=== PATIENT | female | born 1995 ===

== ENCOUNTER 2017-04-12 10:43 | Emergency (ER) | payer OTHER ==
[2017-04-12 10:51] VITALS: BP 124/62; PULSE 86; RESP 20; TEMP 98.4; O2SAT 100
--- NOTE | 2017-04-12 12:04 | ED PDOC ---
HPI: Headache Time Seen by Provider: 04/12/17 11:05 Chief Complaint (Nursing): Headache History Per: Patient History/Exam Limitations: no limitations Onset/Duration Of Symptoms: Gradual (1 week ago became worse today) Current Symptoms Are (Timing): Still Present Severity: Mild Front/Back Head: 1 - occipital headache Preceeding Symptoms: None Associated Symptoms: denies: Photophobia, Blurred Vision, Nausea, Vomiting, Extremity Weakness Additional History Per: Patient Additional Complaint(s): no trauma no bv/dv/n/t/w. left inguinal pain. Past Medical History Reviewed: Historical Data, Nursing Documentation, Vital Signs Vital Signs: Last Vital Signs Temp 98.4 F 04/12/17 10:50 Pulse 86 04/12/17 10:50 Resp 20 04/12/17 10:50 BP 124/62 04/12/17 10:50 Pulse Ox 100 04/12/17 10:50 - Medical History PMH: No Chronic Diseases - Family History Family History: States: Unknown Family Hx - Living Arrangements Living Arrangements: With Family - Social History Current smoker - smoking cessation education provided: No - Home Medications Home Medications: Ambulatory Orders Medication Instructions Recorded Nitrofurantoin Macrocrystals 100 mg PO BID #14 cap 01/03/16 [Macrobid] Naproxen [Naprosyn] 500 mg PO BID PRN #30 tab 04/03/16 Ibuprofen [Motrin] 600 mg PO TID PRN #30 tab 10/29/16 metroNIDAZOLE [Flagyl] 500 mg PO BID #13 tab 10/29/16 Naproxen 500 mg PO BID PRN #30 tab 04/12/17 - Allergies Allergies/Adverse Reactions: Allergies Allergy/AdvReac Type Severity Reaction Status Date / Time No Known Allergies Allergy Verified 04/12/17 11:08 Review of Systems ROS Statement: Except As Marked, All Systems Reviewed And Found Negative Constitutional: Negative for: Fever, Chills Cardiovascular: Negative for: Chest Pain, Palpitations Respiratory: Negative for: Cough, Shortness of Breath Gastrointestinal: Negative for: Nausea, Vomiting, Abdominal Pain Genitourinary Female: Positive for: Pelvic Pain, Other (flank pain). Negative for: Dysuria, Vaginal Discharge, Vaginal Bleeding Musculoskeletal: Negative for: Neck Pain, Shoulder Pain, Arm Pain, Back Pain, Hand Pain, Leg Pain Neurological: Negative for: Weakness, Numbness Physical Exam - Reviewed Nursing Documentation Reviewed: Yes Vital Signs Reviewed: Yes - Physical Exam Appears: Positive for: Uncomfortable Head Exam: Positive for: ATRAUMATIC, NORMAL INSPECTION, NORMOCEPHALIC Eye Exam: Positive for: Normal appearance, EOMI, PERRL Neck: Positive for: Normal, Painless ROM, Supple Cardiovascular/Chest: Positive for: Regular Rate, Rhythm, Chest Non Tender. Negative for: Edema, Gallop, Murmur, Bradycardia, Tachycardia Respiratory: Positive for: Normal Breath Sounds. Negative for: Decreased Breath Sounds, Accessory Muscle Use, Crackles, Rales, Rhonchi, Stridor, Wheezing Gastrointestinal/Abdominal: Positive for: Normal Exam, Bowel Sounds, Soft. Negative for: Tenderness Back: Positive for: Normal Inspection. Negative for: L CVA Tenderness, R CVA Tenderness, Vertebral Tenderness Extremity: Positive for: Normal ROM. 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 Negative for: Motor/Sensory Deficits - Laboratory Results Result Diagrams: 04/12/17 13:14 04/12/17 13:14 Urine POC: Negative - ECG O2 Sat by Pulse Oximetry: 100 Pulse Ox Interpretation: Normal - Progress ED Course And Treament: all labs and us nml. advise close f/u with pmd or medical clinic advise naproxen for pain. Re-evaluation Time: 13:20 Condition: Improved Disposition - Clinical Impression Clinical Impression: Headache - Patient ED Disposition Is Patient to be Admitted: No Counseled Patient/Family Regarding: Studies Performed, Diagnosis, Need For Followup, Rx Given - Disposition Referrals: [facility] [Outside] (2 to 3 days) Disposition: Routine/Home Disposition Time: 14:12 Condition: GOOD Prescriptions: Naproxen 500 mg PO BID PRN #30 tab PRN Reason: Pain, Moderate (4-7) Instructions: Acute Headache (ED), Pelvic Pain in Women (ED) Forms: [employer] (German) Print Language: GUAMANIAN
[2017-04-12 12:50] LABS: SQUAMOUS EPITHIAL 1 /hpf (0-5); URINE BILIRUBIN NEGATIVE (NEGATIVE); URINE BLOOD SMALL (NEGATIVE); URINE CLARITY CLEAR (Clear); URINE COLOR STRAW (YELLOW); URINE GLUCOSE (UA) NEG (Normal); URINE LEUKOCYTE ESTERASE NEG Leu/uL (Negative); URINE NITRATE NEGATIVE (NEGATIVE); URINE PROTEIN NEGATIVE (NEGATIVE); URINE UROBILINOGEN 0.2-1.0 mg/dL (0.2-1.0)
[2017-04-12 13:19] LABS: BASO # 0.1 K/uL (0.0-0.2); EOS # 0.3 K/uL (0.0-0.7); EOS % 4.6 % (0.0-4.0); HEMOGLOBIN 13.8 g/dL (12.0-16.0); LYMPH % 28.5 % (20.0-40.0); MEAN CELL VOLUME 93.8 fl (81.0-99.0); MEAN CORPUSCULAR HEMOGLOBIN 31.6 pg (27.0-31.0); MEAN CORPUSCULAR HGB CONC 33.6 g/dL (33.0-37.0); MEAN PLATELET VOLUME 9.8 fl (7.2-11.7); MONO # 0.6 K/uL (0.0-0.8); MONO % 8.7 % (0.0-10.0); NEUT % 57.2 % (50.0-75.0); RBC 4.36 Mil/uL (3.80-5.20); RED CELL DISTRIBUTION WIDTH 12.5 % (11.5-14.5)
[2017-04-12 13:38] LABS: ALB/GLOB RATIO 1.5 (1.0-2.1); ALBUMIN 4.6 g/dL (3.5-5.0); ALT/SGPT 35 U/L (9-52); AST/SGOT 26 U/L (14-36); BLOOD UREA NITROGEN 12 mg/dl (7-17); CALCIUM 9.5 mg/dL (8.4-10.2); GFR AFRICAN-AMERICAN > 60; GFR NON-AFRICAN AMERICAN > 60
--- NOTE | 2017-04-12 13:40 | CT ---
PROCEDURE: CT HEAD WITHOUT CONTRAST. HISTORY: sanderson COMPARISON: None available. TECHNIQUE: Axial computed tomography images were obtained through the head/brain without intravenous contrast. Coronal and sagittal reconstructed images. Radiation dose: Total exam DLP = 841.24 mGy-cm. This CT exam was performed using one or more of the following dose reduction techniques: Automated exposure control, adjustment of the mA and/or kV according to patient size, and/or use of iterative reconstruction technique. FINDINGS: HEMORRHAGE: No intracranial hemorrhage. BRAIN: No mass effect or edema. No atrophy or chronic microvascular ischemic changes. VENTRICLES: Unremarkable. No hydrocephalus. CALVARIUM: Unremarkable. PARANASAL SINUSES: Unremarkable as visualized. No significant inflammatory changes. MASTOID AIR CELLS: Unremarkable as visualized. No inflammatory changes. OTHER FINDINGS: None. IMPRESSION: No acute intracranial abnormalities. No significant findings to account for the clinical presentation.
[2017-04-12 13:43] LABS: INR 1.2 (0.9-1.2); PARTIAL THROMBOPLASTIN TIME 38.1 Seconds (25.6-37.1); PROTHROMBIN TIME 11.9 Seconds (9.8-13.1)
[2017-04-12 13:47] LABS: LIPASE 101 U/L (23-300)
--- NOTE | 2017-04-12 15:08 | US ---
PROCEDURE: Ultrasound of the Kidneys HISTORY: left flank pain COMPARISON: Comparison is made to the previous CT study dated 10/29/2016. TECHNIQUE: Sonogram of the kidneys. FINDINGS: RIGHT KIDNEY: Measures: 10.9 x 4.3 x 6 cm. Normal in size, contour and echogenicity. No stone, solid mass lesion or hydronephrosis visualized. LEFT KIDNEY: Measures: 10.6 x 5.6 x 5.5 cm. Normal in size, contour and echogenicity. No stone, solid mass lesion or hydronephrosis visualized. OTHER FINDINGS: None. IMPRESSION: Unremarkable renal sonogram.
--- NOTE | 2017-04-12 15:11 | US ---
HISTORY: left groin pain r/o ovarian torsion COMPARISON: Comparison is made to the previous study dated 10/29/2016 TECHNIQUE: Transvaginal ultrasound examination of the pelvis was performed. LMP: 02/16/2017. FINDINGS: UTERUS: Measures 6.7 x 2.6 x 4 cm. Normal in size and appearance. No fibroid or other mass lesion seen. ENDOMETRIUM: Measures 7 mm in diameter. Unremarkable. CERVIX: No cervical abnormality identified. RIGHT OVARY: Measures 3.3 x 2.2 x 2.1 cm. No solid mass. Normal flow. LEFT OVARY: Measures 2.2 x 1.8 x 1.7 cm. No solid mass. Normal flow. FREE FLUID: No significant free fluid noted. OTHER FINDINGS: None. IMPRESSION: Unremarkable pelvic ultrasound.
== END 2017-04-12 15:05 | disposition home or self-care (01) ==
LOC: H.ER 10:43
DX: R51 Headache (principal); R10.2 Pelvic and perineal pain

== ENCOUNTER 2017-08-05 11:30 | Emergency (ER) | payer SELFPAY ==
[2017-08-05 11:57] VITALS: O2SAT 100
[2017-08-05 12:29] VITALS: BP 102/72; PULSE 72; RESP 18; TEMP 97.7
--- NOTE | 2017-08-05 13:09 | ED PDOC ---
Lower Extremity Pain/Injury Time Seen by Provider: 08/05/17 12:30 Chief Complaint (Nursing): Lower Extremity Problem/Injury Chief Complaint (Provider): Knee Pain History Per: Patient History/Exam Limitations: no limitations Onset/Duration Of Symptoms: Mins, Days (x2 weeks) Current Symptoms Are (Timing): Still Present Additional Complaint(s): Kinjal Madera is a 22 year old female who presents to the ED complaining of knee pain x2 weeks. Patient states she is unsure of the cause and denies abnormal activity or trauma. States she took 400 mg Motrin at 8am with no relief. PMD: Non-[facility] Provider Past Medical History Reviewed: Historical Data, Nursing Documentation, Vital Signs Vital Signs: Last Vital Signs Temp 97.7 F 08/05/17 12:25 Pulse 72 08/05/17 12:25 Resp 18 08/05/17 12:25 BP 102/72 08/05/17 12:25 Pulse Ox 100 08/05/17 12:25 - Family History Family History: States: Unknown Family Hx - Home Medications Home Medications: Ambulatory Orders Medication Instructions Recorded Nitrofurantoin Macrocrystals 100 mg PO BID #14 cap 01/03/16 [Macrobid] Naproxen [Naprosyn] 500 mg PO BID PRN #30 tab 04/03/16 Ibuprofen [Motrin] 600 mg PO TID PRN #30 tab 10/29/16 metroNIDAZOLE [Flagyl] 500 mg PO BID #13 tab 10/29/16 Naproxen 500 mg PO BID PRN #30 tab 04/12/17 Naproxen 1 tab PO Q12 PRN #14 tab 08/05/17 - Allergies Allergies/Adverse Reactions: Allergies Allergy/AdvReac Type Severity Reaction Status Date / Time No Known Allergies Allergy Verified 04/12/17 11:08 Review of Systems ROS Statement: Except As Marked, All Systems Reviewed And Found Negative Musculoskeletal: Positive for: Other (Knee Pain) Physical Exam - Reviewed Nursing Documentation Reviewed: Yes Vital Signs Reviewed: Yes - Physical Exam Appears: Positive for: Well, Non-toxic, No Acute Distress Head Exam: Positive for: ATRAUMATIC, NORMAL INSPECTION, NORMOCEPHALIC Skin: Positive for: Normal Color. Negative for: Rash Eye Exam: Positive for: Normal appearance Extremity: Positive for: Normal ROM (able to flex left knee without difficulty) , Tenderness (lateral aspect of left knee), Other (mild crepitus) Neurologic/Psych: Positive for: Alert, Oriented - ECG O2 Sat by Pulse Oximetry: 100 (RA) Pulse Ox Interpretation: Normal - Progress ED Course And Treament: KNEE XRY: NAD Medical Decision Making Medical Decision Making: Time: 12:32 Clinical Impression: Left knee pain Plan: --X-Ray knee left 3 views --Reevaluation Scribe Attestation: Documented by Bhavesh Felder, acting as a scribe for Bernadette Gonzalez PA-C Provider Scribe Attestation: All medical record entries made by the Scribe were at my direction and personally dictated by me. I have reviewed the chart and agree that the record accurately reflects my personal performance of the history, physical exam, medical decision making, and the department course for this patient. I have also personally directed, reviewed, and agree with the discharge instructions and disposition. Disposition - Clinical Impression Clinical Impression: Knee pain - Patient ED Disposition Is Patient to be Admitted: No - Disposition Referrals: [facility] [Outside] Disposition: Routine/Home Disposition Time: 13:56 Condition: FAIR Prescriptions: Naproxen 1 tab PO Q12 PRN #14 tab PRN Reason: Pain, Moderate (4-7) Instructions: Knee Sprain (ED), Knee Exercises (GEN) Forms: [facility] ED School/Work Excuse, [employer] (Kyrgyz) Print Language: KOREAN
--- NOTE | 2017-08-05 14:53 | RAD ---
PROCEDURE: Left Knee Radiographs. HISTORY: COMPARISON: None available. FINDINGS: BONES: No acute displaced fracture. JOINTS: No dislocation. JOINT EFFUSION: No significant joint effusion. OTHER FINDINGS: None. IMPRESSION: No acute displaced fracture, dislocation, or significant joint effusion identified. If symptoms persist, or if there is continued clinical concern, x-ray follow-up in 7-10 days should be considered.
== END 2017-08-05 14:10 | disposition home or self-care (01) ==
LOC: H.ER 11:30
DX: M25.562 Pain in left knee (principal)

== ENCOUNTER 2018-01-23 16:30 | Emergency (ER) | payer SELFPAY ==
[2018-01-23 16:34] VITALS: BP 116/77; PULSE 61; RESP 18; TEMP 98.6; O2SAT 100
--- NOTE | 2018-01-23 17:02 | ED PDOC ---
HPI: General Adult Time Seen by Provider: 01/23/18 16:35 Chief Complaint (Nursing): Breast Problem Chief Complaint (Provider): Breast problem History Per: Patient, Formula Weigher ([id number]) History/Exam Limitations: no limitations Onset/Duration Of Symptoms: Days (x3) Current Symptoms Are (Timing): Still Present Additional Complaint(s): 22 year old female presented to ED with complaints of atraumatic right breast pain with onset of 3 days. Patient indicates she had similar symptoms 6 months ago and was seen by surgeon, Dr. Zaman, who recommended Ultrasound of breast which she has yet to obtain. At the time, patient's symptoms resolved spontaneously. Last menstrual period was December 20, 2017. Of note, pt. reports having tactile fever during the 1st day which has since resolved. Has been using Advil with transient relief of pain. Last dose of Advil was taken at 0800 today. Patient denies nipple discharge, SOB, radiation of pain, cough, rash. PCP: [facility] Past Medical History Reviewed: Historical Data, Nursing Documentation, Vital Signs Vital Signs: Last Vital Signs Temp 98.6 F 01/23/18 16:33 Pulse 61 01/23/18 16:33 Resp 18 01/23/18 16:33 BP 116/77 01/23/18 16:33 Pulse Ox 100 01/23/18 17:25 - Medical History PMH: No Chronic Diseases - Surgical History Surgical History: No Surg Hx - Family History Family History: States: Unknown Family Hx - Social History Current smoker - smoking cessation education provided: No Alcohol: None Drugs: Denies - Home Medications Home Medications: Ambulatory Orders Medication Instructions Recorded Nitrofurantoin Macrocrystals 100 mg PO BID #14 cap 01/03/16 [Macrobid] Naproxen [Naprosyn] 500 mg PO BID PRN #30 tab 04/03/16 Ibuprofen [Motrin] 600 mg PO TID PRN #30 tab 10/29/16 metroNIDAZOLE [Flagyl] 500 mg PO BID #13 tab 10/29/16 Naproxen 500 mg PO BID PRN #30 tab 04/12/17 Naproxen 1 tab PO Q12 PRN #14 tab 08/05/17 Naproxen [Naprosyn] 500 mg PO BID PRN #14 tab 01/23/18 - Allergies Allergies/Adverse Reactions: Allergies Allergy/AdvReac Type Severity Reaction Status Date / Time No Known Allergies Allergy Verified 04/12/17 11:08 Review of Systems ROS Statement: Except As Marked, All Systems Reviewed And Found Negative Cardiovascular: Negative for: Chest Pain Respiratory: Negative for: Shortness of Breath Musculoskeletal: Positive for: Other (Right breast pain with no nipple discharge ) Skin: Negative for: Rash Neurological: Negative for: Other (Radiation of pain) Physical Exam - Reviewed Nursing Documentation Reviewed: Yes Vital Signs Reviewed: Yes - Physical Exam Appears: Positive for: Non-toxic, No Acute Distress Head Exam: Positive for: ATRAUMATIC, NORMAL INSPECTION, NORMOCEPHALIC Skin: Positive for: Normal Color, Warm, Dry. Negative for: Rash Eye Exam: Positive for: Normal appearance Neck: Positive for: Normal, Painless ROM Cardiovascular/Chest: Positive for: Regular Rate, Rhythm. Negative for: Murmur Respiratory: Positive for: Normal Breath Sounds. Negative for: Wheezing, Respiratory Distress Back: Positive for: Normal Inspection. Negative for: L CVA Tenderness, R CVA Tenderness Extremity: Positive for: Normal ROM (upper/lower) Lymphatic: Negative for: Axilla Node Tenderness (or swelling) Neurologic/Psych: Positive for: Alert, Oriented. Negative for: Motor/Sensory Deficits Comments: BREAST: (-) tenderness, (-) mass, (-) palpable mass, (-) skin changes, (-) nipple discharge, (-) swelling. 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 - Laboratory Results Urine POC: Negative - ECG O2 Sat by Pulse Oximetry: 100 (RA) Pulse Ox Interpretation: Normal - Progress ED Course And Treament: Advised to f/u with Dr. Zaman or [facility] for fu Medical Decision Making Medical Decision Making: Initial impression: Breast pain Initial plan: ED urine test 17:11 Upon provider reevaluation patient is feeling better, is medically stable, and requires no further treatment in the ED at this time. Counseling was provided and all questions were answered regarding diagnosis. There is agreement to discharge plan. Return if symptoms persist or worsen. Scribe Attestation: Documented by Placido Zayas acting as a scribe for Brando Benavides. Provider Scribe Attestation: All medical record entries made by the Scribe were at my direction and personally dictated by me. I have reviewed the chart and agree that the record accurately reflects my personal performance of the history, physical exam, medical decision making, and the department course for this patient. I have also personally directed, reviewed, and agree with the discharge instructions and disposition. Disposition - Clinical Impression Clinical Impression: Pain of breast - Patient ED Disposition Is Patient to be Admitted: No - Disposition Referrals: [facility] [Outside] [facility] [Outside] Disposition: Routine/Home Disposition Time: 17:11 Condition: STABLE Additional Instructions: Follow up with [facility] or Dr. Zaman for further evaluation. Return to ED immediately if symptoms worsen. Prescriptions: Naproxen [Naprosyn] 500 mg PO BID PRN #14 tab PRN Reason: Pain Instructions: Mastalgia (DC), Common Breast Problems Forms: [employer] (Citizen Of [place]) Print Language: POLISH
== END 2018-01-23 17:42 | disposition home or self-care (01) ==
LOC: H.ER 16:30
DX: N64.4 Mastodynia (principal)

== ENCOUNTER 2018-03-14 11:30 | Emergency (ER) | payer SELFPAY ==
[2018-03-14] MEDS ORDERED: Sodium Chloride 0.9% 1,000 ML IV STA (12:42)
[2018-03-14 12:56] LABS: BASO # 0.1 K/uL (0.0-0.2); EOS # 0.1 K/uL (0.0-0.7); EOS % 1.9 % (0.0-4.0); HEMOGLOBIN 13.4 g/dL (12.0-16.0); LYMPH # 2.1 K/uL (1.0-4.3); LYMPH % 28.5 % (20.0-40.0); MEAN CELL VOLUME 93.1 fl (81.0-99.0); MEAN CORPUSCULAR HEMOGLOBIN 31.9 pg (27.0-31.0); MEAN CORPUSCULAR HGB CONC 34.3 g/dL (33.0-37.0); MEAN PLATELET VOLUME 9.4 fl (7.2-11.7); MONO # 0.5 K/uL (0.0-0.8); MONO % 6.7 % (0.0-10.0); NEUT # 4.6 K/uL (1.8-7.0); NEUT % 61.9 % (50.0-75.0); RBC 4.2 Mil/uL (3.80-5.20); RED CELL DISTRIBUTION WIDTH 12.8 % (11.5-14.5); WHITE BLOOD COUNT 7.4 K/uL (4.8-10.8)
[2018-03-14 13:06] LABS: ALB/GLOB RATIO 1.4 (1.0-2.1); ALBUMIN 4.3 g/dL (3.5-5.0); ALT/SGPT 26 U/L (9-52); AST/SGOT 22 U/L (14-36); BLOOD UREA NITROGEN 13 mg/dl (7-17); CALCIUM 9.1 mg/dL (8.4-10.2); GFR AFRICAN-AMERICAN > 60; GFR NON-AFRICAN AMERICAN > 60
--- NOTE | 2018-03-14 14:29 | US ---
HISTORY: pelvic pain x1 week r/o torsion COMPARISON: Pelvic ultrasound dated 04/12/2017 TECHNIQUE: Grayscale, color Doppler and spectral evaluation the pelvis performed transabdominally and transvaginally. FINDINGS: UTERUS: Measures 5.8 x 3.1 x 3.3 cm. Anteverted. Normal in size and appearance. No fibroid or other mass lesion seen. ENDOMETRIUM: Measures 5 mm in diameter. Unremarkable. CERVIX: No cervical abnormality identified. RIGHT OVARY: Measures 3.7 x 1.9 x 3.0 cm. No solid mass. Normal flow. LEFT OVARY: Measures 3.4 x 2.1 x 3.5 cm. No solid mass. Normal flow. FREE FLUID: No significant free fluid noted. OTHER FINDINGS: None. IMPRESSION: Unremarkable pelvic ultrasound.
--- NOTE | 2018-03-14 15:00 | ED PDOC ---
HPI: Abdomen <Frida Islas PA-C - Last Filed: 03/17/18 17:20> Chief Complaint (Provider): Abdominal Pain History Per: Patient History/Exam Limitations: no limitations Onset/Duration Of Symptoms: Days (x3) Current Symptoms Are (Timing): Still Present <Tejas Taylor III - Last Filed: 03/19/18 15:02> Time Seen by Provider: 03/14/18 12:13 Chief Complaint (Nursing): Abdominal Pain Additional Complaint(s): 23 year old female presents to the emergency department with a complaint of pelvic discomfort associated with slight dysuria ongoing for 3 days. She denies any vaginal discharge, back pain, fever, chills, nausea, vomiting or diarrhea. PMD: none provided (Tejas Taylor III) Past Medical History <Frida Islas PA-C - Last Filed: 03/17/18 17:20> Reviewed: Historical Data, Nursing Documentation, Vital Signs - Medical History PMH: No Chronic Diseases - Surgical History Surgical History: No Surg Hx - Family History Family History: States: Unknown Family Hx - Social History Current smoker - smoking cessation education provided: No - Immunization History Hx Tetanus Toxoid Vaccination: No Hx Influenza Vaccination: No Hx Pneumococcal Vaccination: No <Tejas Taylor III - Last Filed: 03/19/18 15:02> Vital Signs: Last Vital Signs Temp 98.6 F 03/14/18 15:46 Pulse 76 03/14/18 15:46 Resp 18 03/14/18 15:46 BP 127/76 03/14/18 15:46 Pulse Ox 98 03/14/18 15:46 - Home Medications Home Medications: Ambulatory Orders Medication Instructions Recorded Nitrofurantoin Macrocrystals 100 mg PO BID #14 cap 01/03/16 [Macrobid] Naproxen [Naprosyn] 500 mg PO BID PRN #30 tab 04/03/16 Ibuprofen [Motrin] 600 mg PO TID PRN #30 tab 10/29/16 metroNIDAZOLE [Flagyl] 500 mg PO BID #13 tab 10/29/16 Naproxen 500 mg PO BID PRN #30 tab 04/12/17 Naproxen 1 tab PO Q12 PRN #14 tab 08/05/17 Naproxen [Naprosyn] 500 mg PO BID PRN #14 tab 05/17/18 Clotrimazole 1% Vaginal 30 gm VG HS #1 tube 03/14/18 [Clotrimazole] Nitrofurantoin Macrocrystals 100 mg PO BID #14 cap 03/14/18 [Macrobid] Azithromycin 1,000 mg PO ONCE #2 tablet 03/17/18 - Allergies Allergies/Adverse Reactions: Allergies Allergy/AdvReac Type Severity Reaction Status Date / Time No Known Allergies Allergy Verified 03/14/18 11:52 Review of Systems ROS Statement: Except As Marked, All Systems Reviewed And Found Negative Constitutional: Negative for: Fever, Chills Gastrointestinal: Negative for: Nausea, Vomiting, Diarrhea Genitourinary Female: Positive for: Dysuria (slight), Pelvic Pain (suprapubic discomfort). Negative for: Vaginal Discharge Musculoskeletal: Negative for: Back Pain <Tejas Taylor III - Last Filed: 03/19/18 15:02> Physical Exam - Reviewed Nursing Documentation Reviewed: Yes Vital Signs Reviewed: Yes - Physical Exam Appears: Positive for: Non-toxic, No Acute Distress Head Exam: Positive for: ATRAUMATIC, NORMAL INSPECTION, NORMOCEPHALIC Skin: Positive for: Normal Color, Warm Eye Exam: Positive for: EOMI Cardiovascular/Chest: Negative for: Tachycardia Pulses-Radial (L): 2+ Pulses-Radial (R): 2+ Gastrointestinal/Abdominal: Positive for: Normal Exam, Soft. Negative for: Tenderness Pelvic Exam: Positive for: External Exam Normal, Other (heterogenous white discharge c/w likely candidal infection; performed w hand i cutter). Negative for : Active Bleeding Back: Positive for: Normal Inspection. Negative for: L CVA Tenderness, R CVA Tenderness Extremity: Positive for: Normal ROM (upper/lower) Neurologic/Psych: Positive for: Alert, tobacco baler II-XII (grossly intact), Oriented. Negative for: Motor/Sensory Deficits <Tejas Taylor III - Last Filed: 03/19/18 15:02> - Laboratory Results Result Diagrams: 03/14/18 12:50 03/14/18 12:50 <Frida Islas PA-C - Last Filed: 03/17/18 17:20> - Laboratory Results Result Diagrams: 03/14/18 12:50 03/14/18 12:50 - ECG O2 Sat by Pulse Oximetry: 100 (RA) Pulse Ox Interpretation: Normal <Tejas Taylor III - Last Filed: 03/19/18 15:02> Medical Decision Making <Frida Islas PA-C - Last Filed: 03/17/18 17:20> <Tejas Taylor III - Last Filed: 03/19/18 15:02> Medical Decision Making: +Chlamydia in urine. Pt called, notified of results. Rx for zithromax 1 g PO sent to pt's preferred pharmacy. Advised to f/u for repeat STD testing. Pt verbalize understanding of results and instructions for treatment and f/u. ( Frida Islas PA-C) Initial Impression: Suprapubic pain; Dysuria Initial Plan: * CMP * Urine * Urine dipstick * CBC * NS 1,000ml IV per 1,000mls/hr * Toradol 15mg IV * Urine culture * US pelvis/transvaginal Time: 1315 --Urine is negative for . Trace amount of blood noted in dipstick. --Labs reviewed: unremarkable findings. Time: 1427 --US ABD/pelvis/transvaginal FINDINGS: UTERUS: Measures 5.8 x 3.1 x 3.3 cm. Anteverted. Normal in size and appearance. No fibroid or other mass lesion seen. ENDOMETRIUM: Measures 5 mm in diameter. Unremarkable. CERVIX: No cervical abnormality identified. RIGHT OVARY: Measures 3.7 x 1.9 x 3.0 cm. No solid mass. Normal flow. LEFT OVARY: Measures 3.4 x 2.1 x 3.5 cm. No solid mass. Normal flow. FREE FLUID: No significant free fluid noted. OTHER FINDINGS: None. IMPRESSION: Unremarkable pelvic ultrasound Time: 1503 --Re-eval: patient states improvement with Toradol. --Discussed with patient about the option of a pelvic exam for STD screening via packaging assembler: Anay. --ophthalmic technician apprenticeCarmen quezada, present for pelvic exam as hand i cutter. Scribe Attestation: Documented by Kaleigh Jose, acting as a scribe for Dr. Tejas Taylor III, DO. Provider Scribe Attestation: All medical record entries made by the Scribe were at my direction and personally dictated by me. I have reviewed the chart and agree that the record accurately reflects my personal performance of the history, physical exam, medical decision making, and the department course for this patient. I have also personally directed, reviewed, and agree with the discharge instructions and disposition. (Tejas Taylor III) Disposition <Frida Islas PA-C - Last Filed: 03/17/18 17:20> - Patient ED Disposition Is Patient to be Admitted: No Counseled Patient/Family Regarding: Studies Performed, Diagnosis, Need For Followup, Rx Given - Disposition Disposition: Routine/Home Disposition Time: 14:30 <Tejas Taylor III - Last Filed: 03/19/18 15:02> - Clinical Impression Clinical Impression: Vaginal candidiasis, Dysuria - Disposition Referrals: [facility] [Outside] Condition: STABLE Additional Instructions: Return to ER for any worse or new symptoms. Take medications as directed. Followup with [employer] [facility] as directed. \ STD testing and urine culture will return in 3 days. You will be called only if positive results or if you need your antibiotic changed. Prescriptions: Clotrimazole 1% Vaginal [Clotrimazole] 30 gm VG HS #1 tube Nitrofurantoin Macrocrystals [Macrobid] 100 mg PO BID #14 cap Instructions: Vulvovaginal Yeast Infection, Dysuria, Adult (DC) Forms: [employer] (Irish) Print Language: MONTSERRATIAN
[2018-03-14 15:47] VITALS: BP 127/76; PULSE 76; RESP 18; TEMP 98.6
[2018-03-19 15:03] VITALS: O2SAT 100
== END 2018-03-14 15:48 | disposition home or self-care (01) ==
LOC: H.ER 11:30
DX: B37.3 Candidiasis of vulva and vagina (principal); R30.0 Dysuria
CPT/HCPCS: 76830; 76856; 80053; 81025; 85025; 87070; 87086; 87491; 87591; 99283; J1885; J7030

== ENCOUNTER 2018-06-04 11:54 | Emergency (ER) | payer OTHER, SELFPAY ==
[2018-06-04 12:07] VITALS: BMI 25.0
[2018-06-04] MEDS ORDERED: Iohexol 240 (50 ml) PO ONE (12:40)
[2018-06-04] MEDS ORDERED: Sodium Chloride 0.9% 1,000 ML IV STA (12:40)
[2018-06-04] MEDS ORDERED: Iohexol 240 (50 ml) ONE (12:47)
[2018-06-04 13:09] LABS: ALB/GLOB RATIO 1.2 (1.0-2.1); ALBUMIN 4.6 g/dL (3.5-5.0); ALT/SGPT 30 U/L (9-52); AST/SGOT 27 U/L (14-36); BLOOD UREA NITROGEN 13 mg/dl (7-17); CALCIUM 9.4 mg/dL (8.4-10.2); GFR NON-AFRICAN AMERICAN > 60; LIPASE 37 U/L (23-300)
--- NOTE | 2018-06-04 13:14 | ED PDOC ---
HPI: Abdomen Time Seen by Provider: 06/04/18 12:32 Chief Complaint (Nursing): Abdominal Pain Chief Complaint (Provider): Abdominal Pain History Per: Patient History/Exam Limitations: no limitations Onset/Duration Of Symptoms: Days (x3) Current Symptoms Are (Timing): Still Present Additional Complaint(s): 23 year old female, with no significant past medical history, presenting for evaluation of abdominal pain x3 days. Patient reports some associated nausea and vomiting. Patient denies taking any medication for her symptoms. Patient otherwise denies any fevers, chills, chest pain, cough, shortness of breath, diarrhea, back pain, headache, dizziness, urinary complaints, or bladder or bowel incontinence. Past Medical History Reviewed: Historical Data, Nursing Documentation, Vital Signs Vital Signs: Last Vital Signs Temp 97.9 F 06/04/18 12:08 Pulse 55 L 06/04/18 12:08 Resp 16 06/04/18 12:08 BP 133/78 06/04/18 12:08 Pulse Ox 100 06/04/18 12:08 - Medical History PMH: No Chronic Diseases - Surgical History Surgical History: No Surg Hx - Family History Family History: States: Unknown Family Hx - Immunization History Hx Tetanus Toxoid Vaccination: No Hx Influenza Vaccination: No Hx Pneumococcal Vaccination: No - Home Medications Home Medications: Ambulatory Orders Medication Instructions Recorded Nitrofurantoin Macrocrystals 100 mg PO BID #14 cap 01/03/16 [Macrobid] Naproxen [Naprosyn] 500 mg PO BID PRN #30 tab 04/03/16 Ibuprofen [Motrin] 600 mg PO TID PRN #30 tab 10/29/16 metroNIDAZOLE [Flagyl] 500 mg PO BID #13 tab 10/29/16 Naproxen 500 mg PO BID PRN #30 tab 04/12/17 Naproxen 1 tab PO Q12 PRN #14 tab 08/05/17 Naproxen [Naprosyn] 500 mg PO BID PRN #14 tab 01/23/18 Clotrimazole 1% Vaginal 30 gm VG HS #1 tube 03/14/18 [Clotrimazole] Nitrofurantoin Macrocrystals 100 mg PO BID #14 cap 03/14/18 [Macrobid] Azithromycin 1,000 mg PO ONCE #2 tablet 03/17/18 Ibuprofen [Motrin] 600 mg PO TID 7 Days tab 06/04/18 - Allergies Allergies/Adverse Reactions: Allergies Allergy/AdvReac Type Severity Reaction Status Date / Time No Known Allergies Allergy Verified 06/04/18 12:08 Review of Systems ROS Statement: Except As Marked, All Systems Reviewed And Found Negative Constitutional: Negative for: Fever, Chills Cardiovascular: Negative for: Chest Pain Respiratory: Negative for: Cough, Shortness of Breath Gastrointestinal: Positive for: Nausea, Vomiting, Abdominal Pain. Negative for: Diarrhea, Constipation Genitourinary Female: Negative for: Dysuria, Frequency, Incontinence, Hematuria Musculoskeletal: Negative for: Back Pain Neurological: Negative for: Headache, Dizziness Physical Exam - Reviewed Nursing Documentation Reviewed: Yes Vital Signs Reviewed: Yes - Physical Exam Appears: Positive for: Non-toxic, No Acute Distress Head Exam: Positive for: ATRAUMATIC, NORMAL INSPECTION, NORMOCEPHALIC Skin: Positive for: Normal Color, Warm, Dry. Negative for: Rash Eye Exam: Positive for: EOMI, Normal appearance, PERRL ENT: Positive for: Normal ENT Inspection Neck: Positive for: Normal, Painless ROM, Supple Cardiovascular/Chest: Positive for: Regular Rate, Rhythm. Negative for: Murmur Respiratory: Positive for: Normal Breath Sounds. Negative for: Respiratory Distress Gastrointestinal/Abdominal: Positive for: Soft, Tenderness (mild periumbilical). Negative for: Guarding Back: Positive for: Normal Inspection. Negative for: L CVA Tenderness, Vertebral Tenderness Extremity: Positive for: Normal ROM. Negative for: Pedal Edema, Deformity Neurologic/Psych: Positive for: Alert, Oriented. Negative for: Motor/Sensory Deficits - Laboratory Results Result Diagrams: 06/04/18 12:51 06/04/18 12:51 Interpretation Of Abn Labs: no acute - ECG O2 Sat by Pulse Oximetry: 100 (RA) Pulse Ox Interpretation: Normal - CT Scan/US ct Other Rad Studies (CT/US): Read By Radiologist Other Rad Interpretation: no acute - Progress ED Course And Treament: 1650: Stable. AAOx3. Pain free. Tolerated PO. Fu with pcp. Medical Decision Making Medical Decision Makin Initial Impression: Plan: -CT abdomen and pelvis -CMP -Lipase -Udip -CBC -NS 1L IVB -Iohexol 50ml PO -Pepcid 20mg IVP -Toradol 15mg IVP -Zofran 4mg IVP Scribe Attestation: Documented by Garry Hoang acting as a scribe for Sourav Liang MD Provider Scribe Attestation: All medical record entries made by the Scribe were at my direction and personally dictated by me. I have reviewed the chart and agree that the record accurately reflects my personal performance of the history, physical exam, medical decision making, and the department course for this patient. I have also personally directed, reviewed, and agree with the discharge instructions and disposition. Disposition - Clinical Impression Clinical Impression: Abdominal pain - Patient ED Disposition Is Patient to be Admitted: No Counseled Patient/Family Regarding: Studies Performed, Diagnosis, Need For Followup, Rx Given - Disposition Referrals: [facility] [Outside] - 06/05/18 Disposition: Routine/Home Disposition Time: 16:51 Condition: STABLE Additional Instructions: Return if not better in 3 days. Prescriptions: Ibuprofen [Motrin] 600 mg PO TID 7 Days tab Instructions: Stomach Ache and Stomach Upset Forms: [facility] ED School/Work Excuse Print Language: KOREAN
[2018-06-04 13:15] LABS: BASO # 0.1 K/uL (0.0-0.2); BASO % 0.8 % (0.0-2.0); EOS % 0.7 % (0.0-4.0); LYMPH # 1.9 K/uL (1.0-4.3); LYMPH % 27.8 % (20.0-40.0); MEAN CELL VOLUME 94.1 fl (81.0-99.0); MEAN CORPUSCULAR HEMOGLOBIN 32.3 pg (27.0-31.0); MEAN CORPUSCULAR HGB CONC 34.3 g/dL (33.0-37.0); MEAN PLATELET VOLUME 9.5 fl (7.2-11.7); MONO # 0.5 K/uL (0.0-0.8); MONO % 7.8 % (0.0-10.0); NEUT # 4.2 K/uL (1.8-7.0); NEUT % 62.9 % (50.0-75.0); NRBC % 0.1 % (0.0-0.0); RBC 4.33 Mil/uL (3.80-5.20); RED CELL DISTRIBUTION WIDTH 12.7 % (11.5-14.5); WHITE BLOOD COUNT 6.7 K/uL (4.8-10.8)
[2018-06-04] MEDS ORDERED: Sodium Chloride 0.9% 50 ML IV ONE (15:20)
[2018-06-04] MEDS ORDERED: Iohexol 300 100 ML IJ ONE (15:20)
--- NOTE | 2018-06-04 16:08 | CT ---
Date of service: 06/04/2018 PROCEDURE: CT Abdomen and Pelvis with contrast HISTORY: abd pain COMPARISON: CT scan the abdomen and pelvis dated 10/29/2016 TECHNIQUE: Contrast dose: 95 mL Omnipaque 300 Radiation dose: Total exam DLP = 414 mGy-cm. This CT exam was performed using one or more of the following dose reduction techniques: Automated exposure control, adjustment of the mA and/or kV according to patient size, and/or use of iterative reconstruction technique. FINDINGS: LOWER THORAX: Unremarkable. LIVER: Mild hepatic steatosis. No gross lesion or ductal dilatation. GALLBLADDER AND BILE DUCTS: Unremarkable. PANCREAS: Unremarkable. No gross lesion or ductal dilatation. SPLEEN: Unremarkable. ADRENALS: Unremarkable. No mass. KIDNEYS AND URETERS: Unremarkable. No hydronephrosis. No solid mass. VASCULATURE: Unremarkable. No aortic aneurysm. BOWEL: Unremarkable. No obstruction. No gross mural thickening. APPENDIX: Normal appendix. PERITONEUM: Unremarkable. No free fluid. No free air. LYMPH NODES: Unremarkable. No enlarged lymph nodes. BLADDER: Unremarkable. REPRODUCTIVE: Unremarkable. BONES: No acute fracture. OTHER FINDINGS: None. IMPRESSION: Unremarkable contrast enhanced CT of the abdomen and pelvis.
[2018-06-04 17:01] VITALS: BP 126/67; PULSE 73; RESP 18; TEMP 98.7; O2SAT 99
== END 2018-06-04 17:05 | disposition home or self-care (01) ==
LOC: H.ER 11:54
DX: R10.9 Unspecified abdominal pain (principal)
CPT/HCPCS: 74177; 80053; 81025; 83690; 85025; 96361; 96374; 96375; 99284; J1885; J2405; J7030; Q9966; Q9967

== ENCOUNTER 2018-07-17 09:21 | Emergency (ER) | payer SELFPAY ==
[2018-07-17 09:21] VITALS: BMI 25.0
[2018-07-17 09:31] VITALS: BP 131/61; PULSE 60; RESP 18; TEMP 97.7; O2SAT 100
--- NOTE | 2018-07-17 10:01 | ED PDOC ---
HPI: General Adult Time Seen by Provider: 07/17/18 09:52 Chief Complaint (Nursing): Breast Problem History Per: Patient Onset/Duration Of Symptoms: Other (6 months) Current Symptoms Are (Timing): Intermittent Episodes Severity: Mild Additional Complaint(s): Right breast discomfort intermittently x 6 months. Being followed as outpt with mammogram and US which showed right breast cyst. Last mammo 6 months ago. Denies injury fever or discharge from nipple. Also c/o lower abd pain assoc with urinary frequency. Past Medical History Vital Signs: Last Vital Signs Temp 97.7 F 07/17/18 09:25 Pulse 60 07/17/18 09:25 Resp 18 07/17/18 09:25 BP 131/61 07/17/18 09:25 Pulse Ox 100 07/17/18 09:25 - Medical History PMH: No Chronic Diseases - Family History Family History: States: Unknown Family Hx - Immunization History Hx Tetanus Toxoid Vaccination: No Hx Influenza Vaccination: No Hx Pneumococcal Vaccination: No - Home Medications Home Medications: Ambulatory Orders Medication Instructions Recorded Nitrofurantoin Macrocrystals 100 mg PO BID #14 cap 01/03/16 [Macrobid] Naproxen [Naprosyn] 500 mg PO BID PRN #30 tab 04/03/16 Ibuprofen [Motrin] 600 mg PO TID PRN #30 tab 10/29/16 metroNIDAZOLE [Flagyl] 500 mg PO BID #13 tab 10/29/16 Naproxen 500 mg PO BID PRN #30 tab 04/12/17 Naproxen 1 tab PO Q12 PRN #14 tab 08/05/17 Naproxen [Naprosyn] 500 mg PO BID PRN #14 tab 01/23/18 Clotrimazole 1% Vaginal 30 gm VG HS #1 tube 03/14/18 [Clotrimazole] Nitrofurantoin Macrocrystals 100 mg PO BID #14 cap 03/14/18 [Macrobid] Azithromycin 1,000 mg PO ONCE #2 tablet 03/17/18 Ibuprofen [Motrin] 600 mg PO TID 7 Days tab 06/04/18 Naproxen [Naprosyn] 500 mg PO Q12H #20 tab 07/17/18 - Allergies Allergies/Adverse Reactions: Allergies Allergy/AdvReac Type Severity Reaction Status Date / Time No Known Allergies Allergy Verified 07/17/18 09:31 Review of Systems Constitutional: Negative for: Fever Genitourinary Female: Positive for: Dysuria, Other (Breasy discomfort) Physical Exam - Physical Exam Appears: Positive for: Well, Non-toxic, No Acute Distress Skin: Positive for: Normal Color, Warm, DRY Cardiovascular/Chest: Positive for: Other (Breast, right, no masses, tenderness, erythema, dimpling or lymphadenopathy.) Gastrointestinal/Abdominal: Positive for: Bowel Sounds, Soft. Negative for: Tenderness - ECG O2 Sat by Pulse Oximetry: 100 Disposition - Clinical Impression Clinical Impression: Cyst of breast - Patient ED Disposition Is Patient to be Admitted: No - Disposition Referrals: [facility] [Outside] Disposition: Routine/Home Disposition Time: 10:20 Condition: FAIR Prescriptions: Naproxen [Naprosyn] 500 mg PO Q12H #20 tab Instructions: Common Breast Problems Forms: [facility] (Honduran) Print Language: MOSOTHO
== END 2018-07-17 10:46 | disposition home or self-care (01) ==
LOC: H.ER 09:21
DX: N60.01 Solitary cyst of right breast (principal)

== ENCOUNTER 2018-10-28 12:35 | Emergency (ER) | payer SELFPAY ==
[2018-10-28 13:07] VITALS: BP 138/48; PULSE 78; RESP 18; TEMP 98.6; O2SAT 98
--- NOTE | 2018-10-28 13:32 | ED PDOC ---
HPI: General Adult Time Seen by Provider: 10/28/18 13:00 Chief Complaint (Nursing): Back Pain Chief Complaint (Provider): back pain History Per: Patient (23 y/o female here with lower back pain worse x 2 months with getting up from sitting position. At times notices radiating to abdomen. Denies any dysuria/urinary frequency/fevers/chills.) Past Medical History Reviewed: Historical Data, Nursing Documentation, Vital Signs Vital Signs: Last Vital Signs Temp 98.6 F 10/28/18 13:03 Pulse 78 10/28/18 13:03 Resp 18 10/28/18 13:03 BP 138/48 L 10/28/18 13:03 Pulse Ox 98 10/28/18 13:03 - Family History Family History: States: Unknown Family Hx - Immunization History Hx Tetanus Toxoid Vaccination: No Hx Influenza Vaccination: No Hx Pneumococcal Vaccination: No - Home Medications Home Medications: Ambulatory Orders Medication Instructions Recorded Nitrofurantoin Macrocrystals 100 mg PO BID #14 cap 01/03/16 [Macrobid] RX: Naproxen [Naprosyn] 500 mg PO BID PRN #30 tab 04/03/16 Ibuprofen [Motrin] 600 mg PO TID PRN #30 tab 10/29/16 metroNIDAZOLE [Flagyl] 500 mg PO BID #13 tab 10/29/16 RX: Naproxen 500 mg PO BID PRN #30 tab 04/12/17 RX: Naproxen 1 tab PO Q12 PRN #14 tab 08/05/17 RX: Naproxen [Naprosyn] 500 mg PO BID PRN #14 tab 01/23/18 Clotrimazole 1% Vaginal 30 gm VG HS #1 tube 03/14/18 [Clotrimazole] Nitrofurantoin Macrocrystals 100 mg PO BID #14 cap 03/14/18 [Macrobid] RX: Azithromycin 1,000 mg PO ONCE #2 tablet 03/17/18 Ibuprofen [Motrin] 600 mg PO TID 7 Days tab 06/04/18 Naproxen [Naprosyn] 500 mg PO Q12H #20 tab 07/17/18 Docusate Sodium [Colace] 100 mg PO BID #20 capsule 10/28/18 RX: Naproxen 375 mg PO Q8 PRN #21 tablet 10/28/18 - Allergies Allergies/Adverse Reactions: Allergies Allergy/AdvReac Type Severity Reaction Status Date / Time No Known Allergies Allergy Verified 07/17/18 09:31 Physical Exam - Reviewed Nursing Documentation Reviewed: Yes Vital Signs Reviewed: Yes - Physical Exam Appears: Positive for: Well, Non-toxic, No Acute Distress Head Exam: Positive for: ATRAUMATIC, NORMAL INSPECTION, NORMOCEPHALIC Skin: Positive for: Normal Color, Warm, DRY Eye Exam: Positive for: EOMI, Normal appearance, PERRL ENT: Positive for: Normal ENT Inspection Neck: Positive for: Normal, Painless ROM Cardiovascular/Chest: Positive for: Regular Rate, Rhythm Respiratory: Positive for: CNT, Normal Breath Sounds Gastrointestinal/Abdominal: Positive for: Normal Exam, Soft Back: Positive for: Normal Inspection, Other (mild tenderness by sacral region.) Extremity: Positive for: Normal ROM Neurologic/Psych: Positive for: Alert, Oriented - Laboratory Results Urine POC: Negative Urine dip results: Positive for: Blood (trace). Negative for: Leukocyte Esterase, Nitrate, Ketones, Glucose, Bilirubin, Protein - ECG O2 Sat by Pulse Oximetry: 98 - Progress ED Course And Treament: xry IMPRESSION: Unremarkable radiographs of the sacrum and coccyx. Disposition - Clinical Impression Clinical Impression: Coccygeal pain - Patient ED Disposition Is Patient to be Admitted: No - Disposition Referrals: [facility] [Outside] Disposition: Routine/Home Disposition Time: 15:54 Condition: FAIR Prescriptions: Docusate Sodium [Colace] 100 mg PO BID #20 capsule RX: Naproxen 375 mg PO Q8 PRN #21 tablet PRN Reason: Pain, Moderate (4-7) Instructions: Coccyx Injury (DC) Print Language: FRISIAN
--- NOTE | 2018-10-28 16:22 | RAD ---
Date of service: 10/28/2018 PROCEDURE: Radiographs of the Sacrum and Coccyx HISTORY: Lower back Pain. No history of recent/ related trauma provided COMPARISON: None available. TECHNIQUE: Frontal and lateral views of the sacrum and coccyx FINDINGS: BONES: Sacrum and coccyx unremarkable. No fracture or focal lesion. SACROILIAC JOINTS: Unremarkable. OTHER FINDINGS: None. IMPRESSION: Unremarkable radiographs of the sacrum and coccyx.
== END 2018-10-28 16:09 | disposition home or self-care (01) ==
LOC: H.ER 12:35
DX: M53.3 Sacrococcygeal disorders, not elsewhere classified (principal)

== ENCOUNTER 2018-11-19 17:10 | Emergency (ER) | payer SELFPAY ==
--- NOTE | 2018-11-19 18:18 | ED PDOC ---
HPI: Abdomen Time Seen by Provider: 11/19/18 18:04 Chief Complaint (Nursing): Abdominal Pain Chief Complaint (Provider): pelvic pain History Per: Patient, Buckram Sewer ((Janny [id number])) History/Exam Limitations: language barrier Onset/Duration Of Symptoms: Days (two to three) Outside of [place] travel?: No Current Symptoms Are (Timing): Still Present (Pt presents to the ED with equivocal tests and mild spotting/bleeding from the vagina. Pt expresses suprapubic tenderness and no abdominal pain. She denies urinary sympotms such as dysuria, frequeny, urgeny or hesitation) Context: Other (missed menstrual period and equivocal preg test) Location Of Pain/Discomfort: Suprapubic Quality Of Discomfort: Pressure Last Bowel Movement: Today Abnormal Vaginal Bleeding: Yes Last Menstral Period: October 03 : 0 Para: 0 Miscarriage: 0 Past Medical History Reviewed: Historical Data, Nursing Documentation, Vital Signs Vital Signs: Last Vital Signs Temp 98.5 F 11/19/18 17:22 Pulse 72 11/19/18 17:22 Resp 16 11/19/18 17:22 BP 145/81 11/19/18 17:22 Pulse Ox 100 11/19/18 17:22 - Family History Family History: States: Unknown Family Hx - Immunization History Hx Tetanus Toxoid Vaccination: No Hx Influenza Vaccination: No Hx Pneumococcal Vaccination: No - Home Medications Home Medications: Ambulatory Orders Medication Instructions Recorded Nitrofurantoin Macrocrystals 100 mg PO BID #14 cap 01/03/16 [Macrobid] Naproxen [Naprosyn] 500 mg PO BID PRN #30 tab 04/03/16 Ibuprofen [Motrin] 600 mg PO TID PRN #30 tab 10/29/16 metroNIDAZOLE [Flagyl] 500 mg PO BID #13 tab 10/29/16 Naproxen 500 mg PO BID PRN #30 tab 04/12/17 Naproxen 1 tab PO Q12 PRN #14 tab 08/05/17 Naproxen [Naprosyn] 500 mg PO BID PRN #14 tab 01/23/18 Clotrimazole 1% Vaginal 30 gm VG HS #1 tube 03/14/18 [Clotrimazole] Nitrofurantoin Macrocrystals 100 mg PO BID #14 cap 03/14/18 [Macrobid] Azithromycin 1,000 mg PO ONCE #2 tablet 03/17/18 Ibuprofen [Motrin] 600 mg PO TID 7 Days tab 06/04/18 Naproxen [Naprosyn] 500 mg PO Q12H #20 tab 07/17/18 Docusate Sodium [Colace] 100 mg PO BID #20 capsule 10/28/18 Naproxen 375 mg PO Q8 PRN #21 tablet 10/28/18 - Allergies Allergies/Adverse Reactions: Allergies Allergy/AdvReac Type Severity Reaction Status Date / Time No Known Allergies Allergy Verified 11/19/18 17:21 Review of Systems ROS Statement: Except As Marked, All Systems Reviewed And Found Negative Genitourinary Female: Positive for: Vaginal Bleeding, Pelvic Pain. Negative for: Dysuria, Frequency Physical Exam - Reviewed Nursing Documentation Reviewed: Yes Vital Signs Reviewed: Yes - Physical Exam Appears: Positive for: Well, Non-toxic, No Acute Distress. Negative for: Uncomfortable Head Exam: Positive for: ATRAUMATIC, NORMAL INSPECTION Skin: Positive for: Normal Color, Warm, Dry. Negative for: Diaphoresis, Pallor, Rash Eye Exam: Positive for: Normal appearance. Negative for: Nystagmus, Periorbital swelling, Periorbital tenderness Neck: Positive for: Normal, Supple Cardiovascular/Chest: Positive for: Regular Rate, Rhythm Respiratory: Positive for: Normal Breath Sounds Pulses-Carotid (L): 2+ Pulses-Carotid (R): 2+ Pulses-Radial (L): 2+ Pulses-Radial (R): 2+ Gastrointestinal/Abdominal: Positive for: Normal Exam, Bowel Sounds, Soft. Negative for: Tenderness - Laboratory Results Result Diagrams: 11/19/18 18:40 11/19/18 18:40 - ECG O2 Sat by Pulse Oximetry: 100 Medical Decision Making Medical Decision Making: I: R?O R/O ovarian or uterine cysts/fibroids P: UA CBC CMP apap Beta quant UPreg US Transvaginal 1929 - on re-evaluation, the patient is stable and comfortable 2004- Pt care transferred to [facility] Disposition - Clinical Impression Clinical Impression: Abdominal discomfort, Abdominal pain in female - Patient ED Disposition Is Patient to be Admitted: Transfer of Care - Disposition Disposition: Transfer of Care Disposition Time: 20:05 Condition: STABLE Forms: [employer] (Bulgarian)
[2018-11-19 19:00] LABS: BASO # 0.1 K/uL (0.0-0.2); BASO % 0.7 % (0.0-2.0); EOS # 0.1 K/uL (0.0-0.7); EOS % 0.8 % (0.0-4.0); HEMOGLOBIN 13.9 g/dL (12.0-16.0); LYMPH # 2.8 K/uL (1.0-4.3); LYMPH % 26.7 % (20.0-40.0); MEAN CELL VOLUME 92.5 fl (81.0-99.0); MEAN CORPUSCULAR HEMOGLOBIN 31.1 pg (27.0-31.0); MEAN CORPUSCULAR HGB CONC 33.6 g/dL (33.0-37.0); MEAN PLATELET VOLUME 9.3 fl (7.2-11.7); MONO # 0.8 K/uL (0.0-0.8); MONO % 8.2 % (0.0-10.0); NEUT # 6.6 K/uL (1.8-7.0); NEUT % 63.6 % (50.0-75.0); RBC 4.49 Mil/uL (3.80-5.20); RED CELL DISTRIBUTION WIDTH 12.4 % (11.5-14.5); WHITE BLOOD COUNT 10.3 K/uL (4.8-10.8)
[2018-11-19 19:09] LABS: ALB/GLOB RATIO 1.4 (1.0-2.1); ALBUMIN 4.9 g/dL (3.5-5.0); ALT/SGPT 29 U/L (9-52); AST/SGOT 26 U/L (14-36); BLOOD UREA NITROGEN 16 mg/dl (7-17); CALCIUM 10.2 mg/dL (8.4-10.2); GFR NON-AFRICAN AMERICAN > 60
[2018-11-19 19:56] LABS: SQUAMOUS EPITHIAL 8 /hpf (0-5); URINE BACTERIA OCC (<OCC); URINE BILIRUBIN NEGATIVE (NEGATIVE); URINE BLOOD SMALL (NEGATIVE); URINE CLARITY CLEAR (Clear); URINE COLOR STRAW (YELLOW); URINE GLUCOSE (UA) NEG (NEGATIVE); URINE LEUKOCYTE ESTERASE TRACE Leu/uL (Negative); URINE PROTEIN NEGATIVE (NEGATIVE); URINE UROBILINOGEN 0.2-1.0 mg/dL (0.2-1.0)
--- NOTE | 2018-11-19 20:24 | ED PDOC ---
- Laboratory Results Result Diagrams: 11/19/18 18:40 11/19/18 18:40 Lab Results: Total Bilirubin 0.3 mg/dl (0.2-1.3) 11/19/18 18:40 AST 26 U/L (14-36) 11/19/18 18:40 ALT 29 U/L (9-52) 11/19/18 18:40 Alkaline Phosphatase 92 U/L (38-126) 11/19/18 18:40 Total Protein 8.5 G/DL (6.3-8.2) H 11/19/18 18:40 Albumin 4.9 g/dL (3.5-5.0) 11/19/18 18:40 Globulin 3.5 gm/dL (2.2-3.9) 11/19/18 18:40 Albumin/Globulin Ratio 1.4 (1.0-2.1) 11/19/18 18:40 Urine Color Straw (YELLOW) 11/19/18 18:54 Urine Clarity Clear (Clear) 11/19/18 18:54 Urine pH 6.0 (5.0-8.0) 11/19/18 18:54 Ur Specific [place] 1.011 (1.003-1.030) 11/19/18 18:54 Urine Protein Negative mg/dL (NEGATIVE) 11/19/18 18:54 Urine Glucose (UA) Neg mg/dL (NEGATIVE) 11/19/18 18:54 Urine Ketones Negative mg/dL (NEGATIVE) 11/19/18 18:54 Urine Blood Small (NEGATIVE) 11/19/18 18:54 Urine Nitrate Negative (NEGATIVE) 11/19/18 18:54 Urine Bilirubin Negative (NEGATIVE) 11/19/18 18:54 Urine Urobilinogen 0.2-1.0 mg/dL (0.2-1.0) 11/19/18 18:54 Ur Leukocyte Esterase Trace Candace/uL (Negative) 11/19/18 18:54 Urine RBC (Auto) 3 /hpf (0-3) 11/19/18 18:54 Urine Microscopic WBC 1 /hpf (0-5) 11/19/18 18:54 Ur Squamous Epith Cells 8 /hpf (0-5) H 11/19/18 18:54 Urine Bacteria Occ (<OCC) H 11/19/18 18:54 Beta HCG, Quant < 2.39 mIU/mL 11/19/18 18:40 - ECG O2 Sat by Pulse Oximetry: 100 - Progress ED Course And Treament: Case endorsed to contract writer from [facility] pending ultrasound and re-eval History Pain. Comparison None available. Technique TV Findings Uterus Measures 6.3 x 3.5 x 4.1 cm. Normal in size and appearance. No fibroid or other mass lesion seen. Endometrium Measures 10 mm in diameter. Unremarkable. Right ovary Measures 3.5 x 2.8 x 3.7 cm. No solid mass. Normal flow. Complex cyst measures 1.8 x 1.4 x 1.8 cm. Left ovary Measures 3.1 x 1.5 x 3.8 cm. No solid mass. Normal flow. Follicles. Free fluid No significant free fluid noted. Other Findings Multiple loops of bowel are seen in the pelvic area. Impression 1. Right ovarian complex cyst. 2. Left ovarian follicles. 3. Multiple loops of bowel are seen in the pelvic area. On re-eval, patient resting comfortably Patient educated on findings, discharged with rx Naproxen Advised follow up Board Filler within 2-3 days Return precautions given Disposition - Clinical Impression Clinical Impression: Right ovarian cyst - POA Present On Arrival: None - Disposition [facility] Disposition: Routine/Home Disposition Time: 21:30 Condition: IMPROVED Prescriptions: Naproxen [Naprosyn] 500 mg PO Q12 PRN #14 tablet PRN Reason: Pain, Moderate (4-7) Instructions: Ovarian Cysts Print Language: SINHALA
[2018-11-20 03:23] VITALS: BP 139/81; PULSE 81; RESP 17; TEMP 98.1; O2SAT 99
--- NOTE | 2018-11-20 08:28 | US ---
Date of service: 11/19/2018 HISTORY: pelvic pain w bleeding COMPARISON: None available. TECHNIQUE: Transvaginal pelvic ultrasound was performed. FINDINGS: UTERUS: Measures 6.3 x 3.5 x 4.1 cm. Normal in size and appearance. No fibroid or other mass lesion seen. ENDOMETRIUM: Measures 10 mm in diameter. Normal in appearance. CERVIX: No cervical abnormality identified. RIGHT OVARY: Measures 3.5 x 2.8 x 3.7 cm. No solid mass. Normal flow. There is a 1.8 x 1.4 x 1.8 cm complicated/hemorrhagic cyst. LEFT OVARY: Measures 3.1 x 1.5 x 3.8 cm. No solid mass. Normal flow. FREE FLUID: No significant free fluid noted. OTHER FINDINGS: None. IMPRESSION: 1.8 cm complicated/hemorrhagic cyst in the right ovary. No other significant abnormality. A preliminary report was provided by [facility].
== END 2018-11-19 21:55 | disposition home or self-care (01) ==
LOC: H.ER 17:10
DX: N83.291 Other ovarian cyst, right side (principal)

== ENCOUNTER 2018-12-01 13:12 | Emergency (ER) | payer SELFPAY ==
[2018-12-01 13:24] VITALS: TEMP 98.4; O2SAT 99
--- NOTE | 2018-12-01 13:53 | ED PDOC ---
HPI: Abdomen Time Seen by Provider: 12/01/18 13:37 Chief Complaint (Nursing): Abdominal Pain Chief Complaint (Provider): Right lower abdominal pain History Per: Patient History/Exam Limitations: no limitations Onset/Duration Of Symptoms: Days (3) Current Symptoms Are (Timing): Still Present Location Of Pain/Discomfort: RLQ Quality Of Discomfort: "Pain" Associated Symptoms: denies: Nausea, Vomiting, Diarrhea, Urinary Symptoms Additional Complaint(s): 23yo female, comes to ER reporting right lower quadrant pain x 3 days. She also states she has been having her menses for the past 3 days; was seen in this ER on 11/19 with lower abdominal pain, had an US which indicated complex ovarian cysts. The patient currently denies any nausea, vomiting, diarrhea or urinary symptoms. PMD: None Past Medical History Reviewed: Historical Data, Nursing Documentation, Vital Signs Vital Signs: Last Vital Signs Temp 98.4 F 12/01/18 13:20 Pulse 83 12/01/18 13:20 Resp 16 12/01/18 13:20 BP 106/66 12/01/18 13:20 Pulse Ox 99 12/01/18 13:20 - Medical History PMH: No Chronic Diseases Denies: Chronic Kidney Disease - Surgical History Surgical History: No Surg Hx - Family History Family History: States: Unknown Family Hx - Immunization History Hx Tetanus Toxoid Vaccination: No Hx Influenza Vaccination: No Hx Pneumococcal Vaccination: No - Home Medications Home Medications: Ambulatory Orders Medication Instructions Recorded Nitrofurantoin Macrocrystals 100 mg PO BID #14 cap 01/03/16 [Macrobid] Naproxen [Naprosyn] 500 mg PO BID PRN #30 tab 04/03/16 Ibuprofen [Motrin] 600 mg PO TID PRN #30 tab 10/29/16 metroNIDAZOLE [Flagyl] 500 mg PO BID #13 tab 10/29/16 Naproxen 500 mg PO BID PRN #30 tab 04/12/17 Naproxen 1 tab PO Q12 PRN #14 tab 08/05/17 Naproxen [Naprosyn] 500 mg PO BID PRN #14 tab 01/23/18 Clotrimazole 1% Vaginal 30 gm VG HS #1 tube 03/14/18 [Clotrimazole] Nitrofurantoin Macrocrystals 100 mg PO BID #14 cap 03/14/18 [Macrobid] Azithromycin 1,000 mg PO ONCE #2 tablet 03/17/18 Ibuprofen [Motrin] 600 mg PO TID 7 Days tab 06/04/18 Naproxen [Naprosyn] 500 mg PO Q12H #20 tab 07/17/18 Docusate Sodium [Colace] 100 mg PO BID #20 capsule 10/28/18 Naproxen 375 mg PO Q8 PRN #21 tablet 10/28/18 Naproxen [Naprosyn] 500 mg PO Q12 PRN #14 tablet 11/19/18 Naproxen [Naprosyn] 500 mg PO Q12H #20 tab 12/01/18 - Allergies Allergies/Adverse Reactions: Allergies Allergy/AdvReac Type Severity Reaction Status Date / Time No Known Allergies Allergy Verified 11/19/18 17:21 Review of Systems ROS Statement: Except As Marked, All Systems Reviewed And Found Negative Gastrointestinal: Positive for: Abdominal Pain. Negative for: Nausea, Vomiting, Diarrhea Genitourinary Female: Negative for: Dysuria, Hematuria Physical Exam - Reviewed Nursing Documentation Reviewed: Yes Vital Signs Reviewed: Yes - Physical Exam Appears: Positive for: Non-toxic, No Acute Distress Head Exam: Positive for: ATRAUMATIC, NORMAL INSPECTION, NORMOCEPHALIC Skin: Positive for: Normal Color Eye Exam: Positive for: EOMI, PERRL Neck: Positive for: Supple Cardiovascular/Chest: Positive for: Regular Rate, Rhythm. Negative for: Tachycardia Respiratory: Positive for: Normal Breath Sounds. Negative for: Respiratory Distress Gastrointestinal/Abdominal: Positive for: Soft, Tenderness (right lower quadrant). Negative for: Guarding, Rebound Back: Positive for: Normal Inspection Extremity: Positive for: Normal ROM Neurological/Psych: Positive for: Awake, Alert, Normal Tone, Oriented (x 3) - Laboratory Results Result Diagrams: 12/01/18 14:20 12/01/18 14:20 - ECG O2 Sat by Pulse Oximetry: 99 (RA) Pulse Ox Interpretation: Normal - Progress Re-evaluation Time: 16:34 Condition: Improved Medical Decision Making Medical Decision Makinyo female with right lower quadrant pain; r/o appendicitis Plan: -- Labs -- UPreg -- CT Abdomen/Pelvis -- Toradol 30mg IV 1631 CT Abdomen/Pelvis FINDINGS: LOWER THORAX: Unremarkable. LIVER: Unremarkable. No gross lesion or ductal dilatation. GALLBLADDER AND BILE DUCTS: Unremarkable. PANCREAS: Unremarkable. No gross lesion or ductal dilatation. SPLEEN: Unremarkable. ADRENALS: Unremarkable. No mass. KIDNEYS AND URETERS: Unremarkable. No hydronephrosis. No solid mass. VASCULATURE: Unremarkable. No aortic aneurysm. No aortic atherosclerotic calcification or mural plaque present. BOWEL: Unremarkable. No obstruction. No gross mural thickening. APPENDIX: Normal appendix. PERITONEUM: Unremarkable. No free fluid. No free air. LYMPH NODES: Unremarkable. No enlarged lymph nodes. BLADDER: Unremarkable. REPRODUCTIVE: Normal uterus BONES: No acute fracture. OTHER FINDINGS: None. IMPRESSION: Unremarkable CT examination. Scribe Attestation: Documented by Mckenna Leyva, acting as a scribe for Catalino Tijerina MD. Provider Scribe Attestation: All medical record entries made by the Scribe were at my direction and personally dictated by me. I have reviewed the chart and agree that the record accurately reflects my personal performance of the history, physical exam, medical decision making, and the department course for this patient. I have also personally directed, reviewed, and agree with the discharge instructions and disposition. Disposition - Clinical Impression Clinical Impression: Dysmenorrhea - Patient ED Disposition Is Patient to be Admitted: No Counseled Patient/Family Regarding: Studies Performed, Diagnosis, Need For Followup, Rx Given - Disposition Referrals: [facility] [Outside] Disposition: Routine/Home Disposition Time: 16:35 Condition: FAIR Prescriptions: Naproxen [Naprosyn] 500 mg PO Q12H #20 tab Instructions: Painful Periods Forms: [employer]alize (Mauritanian)
[2018-12-01 14:35] LABS: BASO # 0.1 K/uL (0.0-0.2); BASO % 0.9 % (0.0-2.0); EOS # 0.1 K/uL (0.0-0.7); EOS % 0.7 % (0.0-4.0); HEMOGLOBIN 13.2 g/dL (12.0-16.0); LYMPH # 1.7 K/uL (1.0-4.3); LYMPH % 21.6 % (20.0-40.0); MEAN CELL VOLUME 93.1 fl (81.0-99.0); MEAN CORPUSCULAR HEMOGLOBIN 31.6 pg (27.0-31.0); MEAN CORPUSCULAR HGB CONC 33.9 g/dL (33.0-37.0); MEAN PLATELET VOLUME 9.3 fl (7.2-11.7); MONO # 0.5 K/uL (0.0-0.8); MONO % 6.7 % (0.0-10.0); NEUT # 5.5 K/uL (1.8-7.0); NEUT % 70.1 % (50.0-75.0); RBC 4.18 Mil/uL (3.80-5.20); RED CELL DISTRIBUTION WIDTH 12.4 % (11.5-14.5); WHITE BLOOD COUNT 7.8 K/uL (4.8-10.8)
[2018-12-01 14:51] LABS: ALB/GLOB RATIO 1.3 (1.0-2.1); ALBUMIN 4.3 g/dL (3.5-5.0); ALT/SGPT 22 U/L (9-52); AST/SGOT 26 U/L (14-36); BLOOD UREA NITROGEN 14 mg/dl (7-17); CALCIUM 9.8 mg/dL (8.4-10.2); GFR NON-AFRICAN AMERICAN > 60
[2018-12-01] MEDS ORDERED: Iohexol 300 100 ML IJ ONE (15:56)
[2018-12-01] MEDS ORDERED: Sodium Chloride 0.9% 50 ML IV ONE (15:57)
--- NOTE | 2018-12-01 16:26 | CT ---
Date of service: 12/01/2018 PROCEDURE: CT Abdomen and Pelvis with contrast HISTORY: Abd pain COMPARISON: 06/04/2018 TECHNIQUE: Contrast dose: 95 cc Omnipaque 300 Radiation dose: Total exam DLP = 495.63 mGy-cm. This CT exam was performed using one or more of the following dose reduction techniques: Automated exposure control, adjustment of the mA and/or kV according to patient size, and/or use of iterative reconstruction technique. FINDINGS: LOWER THORAX: Unremarkable. LIVER: Unremarkable. No gross lesion or ductal dilatation. GALLBLADDER AND BILE DUCTS: Unremarkable. PANCREAS: Unremarkable. No gross lesion or ductal dilatation. SPLEEN: Unremarkable. ADRENALS: Unremarkable. No mass. KIDNEYS AND URETERS: Unremarkable. No hydronephrosis. No solid mass. VASCULATURE: Unremarkable. No aortic aneurysm. No aortic atherosclerotic calcification or mural plaque present. BOWEL: Unremarkable. No obstruction. No gross mural thickening. APPENDIX: Normal appendix. PERITONEUM: Unremarkable. No free fluid. No free air. LYMPH NODES: Unremarkable. No enlarged lymph nodes. BLADDER: Unremarkable. REPRODUCTIVE: Normal uterus BONES: No acute fracture. OTHER FINDINGS: None. IMPRESSION: Unremarkable CT examination.
[2018-12-01 17:53] VITALS: BP 110/70; PULSE 80; RESP 18
== END 2018-12-01 17:43 | disposition home or self-care (01) ==
LOC: H.ER 13:12
DX: N94.6 Dysmenorrhea, unspecified (principal)
CPT/HCPCS: 74177; 80053; 81025; 85025; 96374; 99284; J1885; Q9967